=== PATIENT | female | born 1970 | race Caucasian/White ===

== ENCOUNTER 2020-11-29 10:55 | Emergency (ER) | payer OTHER ==
[~2020-11-29] VITALS: Ht 165.1 cm; Wt 100.0 kg
[2020-11-29 11:00] VITALS: Ht 165.1 cm; Wt 100.0 kg
[2020-11-29 11:26] LABS: BASOPHILS 1.4 % (0-2); EOSINOPHILS 3.4 % (0-7); HEMATOCRIT 48.9 % (36.0-48.0); HEMOGLOBIN 16.2 g/dL (12-16); LYMPHOCYTES 31.2 % (15-50); MCH 29.7 pg (26.0-34.0); MCHC 33.2 g/dL (31.0-37.0); MCV 89.3 fL (80.0-100.0); MEAN PLATELET VOLUME 7.8 fL (7.4-10.4); MONOCYTES 6.3 % (2-11); NEUTROPHILS 57.7 % (40-80); PLATELET COUNT 325 10x3/uL (130-400); RBC 5.48 10x6/uL (4.00-5.40); RDW 13.5 % (11.5-14.5)
[2020-11-29 11:47] LABS: ALKALINE PHOSPHATASE 86 U/L (30-120); ALT (SGPT) 45 U/L (10-68); BILIRUBIN - TOTAL 0.26 mg/dL (0.2-1.3); CALCIUM 9.2 mg/dL (8.5-10.1); CARBON DIOXIDE 30.8 mmol/L (21.0-32.0); CKMB 1.4 U/L (0.0-3.6); CREATINE KINASE 72 UL (21-215); CREATININE - SERUM 0.8 mg/dL (0.6-1.3); GLUCOSE 95 mg/dL (74-106); LIPASE 153 U/L (73-393); MAGNESIUM - SERUM 2.2 mg/dL (1.8-2.4); PROTEIN - SERUM 7.9 g/dL (6.4-8.2); UREA NITROGEN 11 mg/dL (7-18); eGFR NON AFRICAN AMERICAN 83 mL/min (90-120)
[2020-11-29 11:52] LABS: TROPONIN-I < 0.017 ng/mL (0.000-0.060)
[2020-11-29 12:16] LABS: APTT 33.4 SECONDS (22.8-39.4); INR 1.11 (0.85-1.17); PROTIME 13.2 SECONDS (11.6-15.0)
[2020-11-29 12:17] LABS: D-DIMER-QUANTITATIVE < 0.27 ug/mLFEU (0.20-0.54)
[2020-11-29 12:19] LABS: CALC OSMOLALITY 279 mosm/kg (275-300); CHLORIDE - SERUM 105 mmol/L (98-107); SODIUM 141 mmol/L (136-145)
[2020-11-29 13:23] LABS: BILIRUBIN NEGATIVE (NEGATIVE); KETONE NEGATIVE (NEGATIVE); NITRITE NEGATIVE (NEGATIVE); UROBILINOGEN NORMAL mg/dL (< 2)
[2020-11-29] MEDS ORDERED: ULTRAM50 MG PO (13:58)
[2020-11-29 14:59] VITALS: BP 165/73
== END 2020-11-29 14:59 | disposition home or self-care (01) ==
LOC: EDBD 10:55 → D.ER 10:55
PROVIDERS: Student in an Organized Health Care Education/Training Program
DX: B34.9 Viral infection, unspecified (principal); E86.0 Dehydration; R51.9 Headache, unspecified; R07.9 Chest pain, unspecified; R53.1 Weakness